=== PATIENT | female | born 1995 | race Caucasian/White ===

== ENCOUNTER 2024-07-13 21:32 | Emergency (ER) | payer OTHER, SELFPAY ==
--- NOTE | 2024-07-13 | ECG_ITS ---
Test Reason : VOMITING Blood Pressure : */* mmHG Vent. Rate : 129 BPM Atrial Rate : 129 BPM P-R Int : 118 ms QRS Dur : 68 ms QT Int : 314 ms P-R-T Axes : 64 64 35 degrees QTcB Int : 460 ms Artifact in tracing Sinus tachycardia Possible Left atrial enlargement Borderline ECG No previous ECGs available Referred By: Generic ED Physician Electronically Signed By: JOHN BARLOW
[2024-07-13 21:38] VITALS: BP 125/75; PULSE 134; RESP 16; TEMP 36.9; O2SAT 100; BMI 22.8
[2024-07-13 21:49] LABS: Glucose, Whole Blood 95 mg/dL (60-115)
[2024-07-13 22:05] LABS: Basophils Percent Auto 0.1 % (0-2); Eosinophils Percent Auto 0.1 % (0-4); Hematocrit 37.9 % (37.0-47.0); Hemoglobin 13.3 g/dl (12.0-16.0); Imm Gran Abs Auto 0.07 X10*3/uL (0.00-0.03); Imm Gran Pct Auto 0.6 % (0.0-0.4); Lymphocytes Absolute Auto 0.5 X10*3/uL (1.2-4.9); Lymphocytes Percent Auto 4.2 % (20-40); MANUAL DIFF FLAG SCAN; Mean Corpuscular HGB Conc 35.1 g/dl (31.0-35.0); Mean Corpuscular Hemoglobin 28.1 pg (27.0-33.0); Mean Platelet Volume 9.5 fL (9.4-12.3); Monocytes Absolute Auto 0.3 X10*3/uL (0.1-1.2); Neutrophils Absolute Auto 10.6 x10*3/uL (2.0-8.3); Platelet Count 291 X10*3/uL (160-400); Red Blood Count 4.74 X10*6/uL (4.20-5.50); Red Cell Distribution Width 13.3 % (11.0-16.0); SCAN SMEAR FLAG 1; White Blood Count 11.5 X10*3/uL (4.8-10.8)
[2024-07-13 22:24] LABS: Alanine Aminotransferase 33 U/L (0-31); Albumin Level 4.1 g/dL (3.5-5.0); Alkaline Phosphatase 178 U/L (39-117); Anion Gap 13 (12-20); Aspartate Amino Transferase 24 U/L (5-31); Bilirubin Total 0.8 mg/dL (0.0-1.0); Blood Urea Nitrogen 19 mg/dL (9-16); Calcium 9.6 mg/dL (8.4-10.2); Carbon Dioxide 23 mmol/L (22-29); Chloride 107 mmol/L (96-108); Creatinine Clr Calc Pharmacy 133.2; Estimated Glomerular Filt Rate > 60; Glucose Random 99 mg/dL (60-115); Potassium 3.9 mmol/L (3.3-5.1); Sodium 139 mmol/L (135-145); Total Protein 7.9 g/dL (6.5-8.0)
[2024-07-13 22:53] LABS: SLIDE REVIEW VERIFIED
[2024-07-13 23:39] VITALS: BP 125/65; PULSE 138; RESP 16; TEMP 36.8; O2SAT 100
[2024-07-13 23:51] LABS: Appearance Urine Clear; Color Urine Yellow; Glucose Urine UA Negative (Negative); Leukocyte Esterase Urine Negative (Negative); Nitrite Urine Negative (Negative); PH 6.5 (5.0-9.0); Specific Gravity - Urine >= 1.030 (1.005-1.025); UMIC TRIGGER UACC YES; Urine Blood Moderate (2+) (Negative); Urine Ketones >=160 mg/dL (Negative); Urine Protein Trace mg/dL (Neg-Trace)
[2024-07-13 23:56] LABS: Bacteria Urine None Seen (None Seen); Hyaline Casts Urine 0-2 /LPF (0-2); Squamous Epithelial Cell Urine 0-2 /HPF (0-2); WBC Urine 0-5 /HPF (0-5)
--- NOTE | 2024-07-14 00:03 | ED.NAVMDI ---
HPI - Nausea/Vomiting/Diarrhea General Chief complaint: Nausea/Vomiting/Diarrhea Stated complaint: vomiting Time Seen by Provider: 07/13/24 23:47 History of Present Illness ED Provider: Keyon Woody MD HPI Narrative: 29-year-old female with history of hyperthyroidism on methimazole and propranolol. She has had less than 24 hours of mild diffuse cramping abdominal pain and nonbloody nonbilious vomiting. Sick contact at home both child with GI symptoms and who developed diarrhea today. She feels low-grade fever. She is taking small sips of water can tolerate a beyond that. No abdominal surgeries no urinary symptoms Related Data Previous Rx's ?Medication ?Instructions ?Recorded ondansetron 4 mg disintegrating 4 mg PO Q8H PRN nausea and 07/14/24 tablet vomiting #7 tabs Allergies Allergy/AdvReac Type Severity Reaction Status Date / Time No Known Allergies Allergy Verified 07/13/24 21:40 [facility] Social History Social History Smoked in Last 30 Days: No Use of substances other than those prescribed or required for medical reasons: No Advance Directives: No Advance Directives Information Provided: No Do you have a plan to hurt others: No Plan Physical Exam Vital Signs: Vital Signs: Last Vital Signs Temp 98.3 F 07/14/24 01:41 Pulse 138 H 07/14/24 01:41 Resp 16 07/14/24 01:41 BP 125/65 07/14/24 01:41 Pulse Ox 100 07/14/24 01:41 O2 Del Method Room Air 07/14/24 01:41 BMI result Body Mass Index 22.8 Const: Other: EXAM: Gen: Alert, awake, well appearing, well hydrated. Mildly warm to the touch Head: Atraumatic Eyes: Anicteric, Normal conjunctiva. ENT: Moist mucosa, no pallor. Neck: Supple. Respiratory: Breathing comfortably, No distress.Clear to auscultation bilaterally, symmetric chest expansion, No wheeze, rales, ronchi. Cardiovascular: Regular rate and rhythm. No murmurs or rub. Well perfused periphery, warm extremities. No edema. Abdominal: Soft, no objective distension. No palpable masses or obvious organomegaly. No focal tenderness, no guarding, no rebound tenderness or other peritoneal findings. : No flank tenderness. Neuro: Alert. Gross movement of all extremities intact. Vital signs: See flowsheet Medications Administered Discontinued Medications Generic Name Dose Route Start Last Admin Trade Name Benoitq PRN Reason Stop Dose Admin Sodium Chloride 1,000 mls @ 999 mls/hr 07/14/24 00:15 07/14/24 01:33 Ns IV 07/14/24 01:15 Infused .Q1H1M MAYRA Infusion Acetaminophen 1,000 mg in 100 mls @ 400 mls/hr 07/14/24 00:02 07/14/24 00:46 Ofirmev IV 07/14/24 00:16 Infused ONCE ONE Infusion Ondansetron HCl 4 mg 07/14/24 00:02 07/14/24 00:23 Ondansetron Hcl 4 Mg/2 Ml Vial IVPUSH 07/14/24 00:03 4 mg ONCE ONE Administration Pantoprazole Sodium 40 mg 07/14/24 00:02 07/14/24 00:22 Pantoprazole Sodium 40 Mg/10 Ml Vial IVPUSH 07/14/24 00:03 40 mg ONCE ONE Administration Medical Decision Making Medical Decision Making MDM Narrative: 29-year-old female with hyperthyroidism vomiting x1 day in the setting of multiple sick contacts with GI symptoms and local outbreaks of viral gastroenteritis and other viral syndrome with predominant GI symptoms. No focal abdominal tenderness to suggest appendicitis or biliary colic. Low-grade fever 99.0 F in the ED. Labs reassuring with no electrolyte derangements. Doubt appendicitis or biliary colic. Doubt acute emergent or surgical pathology. Plan for hydration supportive therapy symptomatic relief. Lab Data 07/13/24 21:58 07/13/24 21:58 Labs: Lab Results 07/13/24 07/13/24 07/13/24 Range/Units 21:46 21:58 23:37 WBC 11.5 H (4.8-10.8) X10*3/uL RBC 4.74 (4.20-5.50) X10*6/uL Hgb 13.3 (12.0-16.0) g/dl Hct 37.9 (37.0-47.0) % MCV 80.0 (80.0-98.0) fL MCH 28.1 (27.0-33.0) pg MCHC 35.1 H (31.0-35.0) g/dl RDW 13.3 (11.0-16.0) % Plt Count 291 (160-400) X10*3/uL MPV 9.5 (9.4-12.3) fL Immature Gran % (Auto) 0.6 H (0.0-0.4) % Neut % (Auto) 92.0 H (45-73) % Lymph % (Auto) 4.2 L (20-40) % [place] % (Auto) 3.0 (2-11) % Eos % (Auto) 0.1 (0-4) % Baso % (Auto) 0.1 (0-2) % Lymph # (Auto) 0.5 L (1.2-4.9) X10*3/uL [place] # (Auto) 0.3 (0.1-1.2) X10*3/uL Eos # (Auto) 0.0 (0.0-0.4) X10*3/uL Baso # (Auto) 0.0 (0.0-0.2) X10*3/uL Abs Immat Gran (auto) 0.07 H (0.00-0.03) X10*3/uL Absolute Neuts (auto) 10.6 H (2.0-8.3) x10*3/uL Absolute Nucleated RBC 0.000 (0.0-0.012) X10*3/uL Nucleated RBC % (auto) 0.0 (0.0-0.2) /100WBC Smear Tech's Comments VERIFIED Sodium 139 (135-145) mmol/L Potassium 3.9 (3.3-5.1) mmol/L Chloride 107 (96-108) mmol/L Carbon Dioxide 23 (22-29) mmol/L Anion Gap 13 (12-20) BUN 19 H (9-16) mg/dL Creatinine 0.47 L (0.5-1.4) mg/dL Estim Creat Clear Calc 133.2 Estimated GFR > 60 POC Glucose 95 (60-115) mg/dL Random Glucose 99 (60-115) mg/dL Calcium 9.6 (8.4-10.2) mg/dL Total Bilirubin 0.8 (0.0-1.0) mg/dL AST 24 (5-31) U/L ALT 33 H (0-31) U/L Alkaline Phosphatase 178 H (39-117) U/L Total Protein 7.9 (6.5-8.0) g/dL Albumin 4.1 (3.5-5.0) g/dL Urine Color Yellow Urine Appearance Clear Urine pH 6.5 (5.0-9.0) Ur Specific [place] >= 1.030 H (1.005-1.025) Urine Protein Trace (Neg-Trace) mg/dL Urine Glucose (UA) Negative (Negative) mg/dL Urine Ketones >=160 (Negative) mg/dL Urine Blood Moderate (2+) H (Negative) Urine Nitrite Negative (Negative) Ur Leukocyte Esterase Negative (Negative) Urine RBC 6-10 H (0-2) /HPF Urine WBC 0-5 (0-5) /HPF Ur Squamous Epith Cells 0-2 (0-2) /HPF Urine Bacteria None Seen (None Seen) Hyaline Casts 0-2 (0-2) /LPF Independent Interpretation I performed an independent interpretation of an: EKG Interpretation: arrival initial ecg was sinus tachy 129 rate QTc <500 no ischemia. Discharge Plan Discharge Clinical Impression: Gastroenteritis, Dehydration Patient Disposition: Home, Self-Care Instructions: Dehydration (ED), Gastroenteritis (DC) Additional Instructions: DISCHARGE DIAGNOSES: Presumed viral syndrome likely gastroenteritis causing the nausea and vomiting could be food-borne illness HISTORY OF PRESENTATION: nausea and vomiting for 1 day EMERGENCY DEPARTMENT COURSE,TESTS, TREATMENTS: While in the ED today you had basic blood work and chemistry tests which were normal and reassuring. We hydrated you with intravenous fluids and gave you nausea medicine and medicine to bring down your fever including ondansetron and IV acetaminophen. DISCHARGE MEDICATIONS: We have provided you with a prescription for oral Zofran as needed a nausea medicine FOLLOW-UP: Call your primary or general physician soon as possible to discuss your symptoms, your ED visit and to discuss follow up plans drink plenty of clear fluids advance your diet slowly as tolerated including butter toast light brought the soup INSTRUCTIONS & RETURN PRECAUTIONS: If any symptoms change first call your primary physician, if it is after-hours your primary doctors office should have a provider almond roaster you can speak with. If the symptoms are severe or very concerning to you then call 911 or return to the ED. Keyon Woody MD Emergency Physician [facility] Prescriptions: New ondansetron 4 mg tablet,disintegrating 4 mg PO Q8H PRN (Reason: nausea and vomiting) Qty: 7 0RF Interventions: ED Discharge Assessment Last Done: 07/14/24 01:41 Discharge Date/Time: 07/14/24 01:43 Print Language: Mauritanian
[2024-07-14] MEDS: Pantoprazole Sodium 40 MG/10 ML VIAL IVPUSH (00:22)
[2024-07-14] MEDS: Acetaminophen 1,000 MG/100 ML PIGGYBACK 400 MG IV (00:22)
[2024-07-14] MEDS: ondansetron HCL 4 MG/2 ML VIAL IVPUSH (00:23)
[2024-07-14] MEDS: 0.9 % Sodium Chloride 1,000 ML 999 ML IV (00:26)
--- NOTE | 2024-07-14 00:33 | PC.NURSE ---
Pt medicated per [facility] Plan of care ongoing.
[2024-07-14 01:41] VITALS: BP 125/65; PULSE 138; RESP 16; TEMP 36.8; O2SAT 100
== END 2024-07-14 01:43 | disposition home or self-care (01) ==
PROVIDERS: Emergency Provider Emergency Medicine
DX: K52.9 Noninfective gastroenteritis and colitis, unspecified (principal); R50.9 Fever, unspecified; E86.0 Dehydration; E03.9 Hypothyroidism, unspecified; Z79.899 Other long term (current) drug therapy
CPT/HCPCS: 36415; 80053; 81001; 82947; 85025; 93005; 96361; 96365; 96375; 99284; 99285; J0131; J2405; J2470

== ENCOUNTER → 2024-07-13 21:55 | Outpatient (BNV) | payer OTHER, SELFPAY | PROVIDERS: Emergency Provider Emergency Medicine; Visit Provider Internal Medicine | DX: R00.0 Tachycardia, unspecified (principal) | CPT/HCPCS: 93010 ==